=== PATIENT | female | born 1980 | race Caucasian/White ===

== ENCOUNTER → 2017-09-03 | Outpatient (CLI) | payer OTHER ==
[2017-09-03 08:57] LABS: Basophils # (A) 0.1 k/uL (0-0.2); Basophils % (A) 1 %; CH 31.6; Eosinophils # (A) 0.2 k/uL (0-0.7); Eosinophils % (A) 2 %; HCT 43.3 % (34.0-46.0); HDW 2.05; HGB 14.2 gm/dL (11.4-16.0); Luc # (Auto) 0.19; Luc % (Auto) 3; Lymphocytes # (A) 3.5 k/uL (1.0-4.8); Lymphocytes % (A) 45 %; MCH 31.3 pg (25.0-35.0); MCHC 32.7 g/dL (31.0-37.0); MCV 95.9 fL (80.0-100.0); Mean Platelet Volume 6.6; Monocytes # (A) 0.4 k/uL (0-1.0); Monocytes % (A) 6 %; Neutrophils # (A) 3.5 k/uL (1.3-7.7); Neutrophils % (A) 44 %; RBC 4.52 m/uL (3.80-5.40); WBC 7.9 k/uL (3.8-10.6); WBC (Perox) 7.63
[2017-09-03 09:27] LABS: ALT 35 U/L (9-52); AST 24 U/L (14-36); Alkaline Phosphatase 39 U/L (38-126); Anion Gap 8 mmol/L; Blood Urea Nitrogen 16 mg/dL (7-17); Calcium 10.4 mg/dL (8.4-10.2); Carbon Dioxide 28 mmol/L (22-30); Chloride 105 mmol/L (98-107); Cholesterol 217 mg/dL (<200); Glucose 85 mg/dL (74-99); HDL Cholesterol 83 mg/dL (40-60); Non-African American GFR(MDRD) >60 (>60 ml/min/1.73 sqM); Potassium 4.3 mmol/L (3.5-5.1); Sodium 141 mmol/L (137-145); Total Bilirubin 0.5 mg/dL (0.2-1.3); Total Protein 7.3 g/dL (6.3-8.2)
== END | disposition home or self-care (01) ==
LOC: LABWHC1 08:27
PROVIDERS: ATTEND Nurse Practitioner Family
DX: E55.9 Vitamin D deficiency, unspecified (principal); R79.9 Abnormal finding of blood chemistry, unspecified; D64.9 Anemia, unspecified; E78.5 Hyperlipidemia, unspecified
CPT/HCPCS: 36415; 80053; 80061; 82306; 82607; 83036; 84439; 84443; 85025

== ENCOUNTER → 2018-04-20 | Outpatient (CLI) | payer OTHER ==
[2018-04-20 10:12] LABS: Basophils # (A) 0.1 k/uL (0-0.2); Basophils % (A) 1 %; Eosinophils # (A) 0.2 k/uL (0-0.7); Eosinophils % (A) 2 %; HCT 40.8 % (34.0-46.0); Lymphocytes # (A) 3.3 k/uL (1.0-4.8); Lymphocytes % (A) 39 %; MCH 31.9 pg (25.0-35.0); MCHC 34.4 g/dL (31.0-37.0); MCV 92.9 fL (80.0-100.0); Monocytes # (A) 0.4 k/uL (0-1.0); Monocytes % (A) 5 %; Neutrophils # (A) 4.2 k/uL (1.3-7.7); Neutrophils % (A) 51 %; Platelet Count 465 k/uL (150-450); WBC 8.4 k/uL (3.8-10.6)
[2018-04-20 10:28] LABS: ALT 33 U/L (9-52); AST 27 U/L (14-36); Albumin 4.4 g/dL (3.5-5.0); Alkaline Phosphatase 40 U/L (38-126); Anion Gap 11 mmol/L; Blood Urea Nitrogen 13 mg/dL (7-17); Calcium 10.1 mg/dL (8.4-10.2); Carbon Dioxide 24 mmol/L (22-30); Chloride 105 mmol/L (98-107); Cholesterol 229 mg/dL (<200); Glucose 88 mg/dL (74-99); HDL Cholesterol 85 mg/dL (40-60); LDL Cholesterol,Calculated 112 mg/dL (0-99); Potassium 4.3 mmol/L (3.5-5.1); Sodium 140 mmol/L (137-145); Total Bilirubin 0.6 mg/dL (0.2-1.3); Total Protein 7.1 g/dL (6.3-8.2); Triglycerides 159 mg/dL (<150)
[2018-04-20 10:43] LABS: T4, Free (Free Thyroxine) 1.05 ng/dL (0.78-2.19)
[2018-04-20 16:53] LABS: Iron Saturation 55.7 (12.00-45.00)
[2018-04-20 17:00] LABS: Vitamin D 25 Hydroxy 57.6 ng/mL (30.0-100.0)
== END | disposition home or self-care (01) ==
LOC: LABWHC1 09:43
PROVIDERS: ATTEND Family Medicine
DX: Z00.00 Encounter for general adult medical examination without abnormal findings (principal); E55.9 Vitamin D deficiency, unspecified; F51.01 Primary insomnia; E78.5 Hyperlipidemia, unspecified; F41.9 Anxiety disorder, unspecified
CPT/HCPCS: 36415; 80053; 80061; 82306; 82607; 83540; 83550; 84439; 85025; 86304

== ENCOUNTER → 2018-05-07 | Outpatient (CLI) | payer OTHER ==
--- NOTE | 2018-05-08 08:42 | US ---
EXAMINATION TYPE: US transvaginal DATE OF EXAM: 05/07/2018 COMPARISON: NONE CLINICAL HISTORY: N83.209 Ovarian Cyst. Patient states she recently moved here from [place]. Her C A 125 levels were elevated, but are now in the normal range. History of right ovarian cyst. TECHNIQUE: . Transvaginal sonographic images of the pelvis were acquired. Date of LMP: About 3 months ago EXAM MEASUREMENTS: Uterus: 5.1 x 2.9 x 3.6 cm Endometrial Stripe: 0.5 cm Right Ovary: 2.9 x 1.9 x 1.0 cm Left Ovary: 1.4 x 1.2 x 0.7 cm 1. Uterus: Anteflexed wnl 2. Endometrium: wnl 3. Right Ovary: Solid appearing hypoechoic area visualized measuring 1.2 x 1.1 x 1.1 cm 4. Left Ovary: wnl 5. Bilateral Adnexa: wnl 6. Posterior cul-de-sac: wnl IMPRESSION: 1. Solid 1 cm nodule right ovary. Follow-up is recommended.
== END | disposition home or self-care (01) ==
LOC: RADUSWWP 16:01 → MERGE 16:20
PROVIDERS: ATTEND Family Medicine
DX: N83.8 Other noninflammatory disorders of ovary, fallopian tube and broad ligament (principal)
CPT/HCPCS: 76830

== ENCOUNTER → 2018-06-27 | Outpatient (CLI) | payer OTHER ==
--- NOTE | 2018-06-28 11:31 | MM ---
Reason for exam: screening (asymptomatic). History: Taking hormonal contraceptives for 5 years. Physical Findings: A clinical breast exam by your physician is recommended on an annual basis and results should be correlated with mammographic findings. MG 3D Screening Mammo W/Cad Bilateral CC and MLO view(s) were taken. No prior studies available for comparison. The breast tissue is heterogeneously dense. This may lower the sensitivity of mammography. There is no discrete abnormality. ASSESSMENT: Negative, BI-RAD 1 RECOMMENDATION: Routine screening mammogram of both breasts at age 39.
== END | disposition home or self-care (01) ==
LOC: RADMAMWWP 11:25
PROVIDERS: ATTEND Family Medicine
DX: Z12.31 Encounter for screening mammogram for malignant neoplasm of breast (principal)
CPT/HCPCS: 77063; 77067

== ENCOUNTER → 2018-07-10 | Outpatient (CLI) | payer OTHER ==
--- NOTE | 2018-07-11 12:16 | CT ---
EXAMINATION TYPE: CT abdomen w con DATE OF EXAM: 07/10/2018 COMPARISON: None INDICATION: Umbilical pain. DLP: 332.8 mGycm, Automated exposure control for dose reduction was used. CONTRAST: 100ml mL of Isovue 300. Study performed with Oral Contrast TECHNIQUE: Axial images were obtained from above the diaphragm to the pubic rami in the axial plane a t 5 mm thick sections. Reconstructed images are reviewed on the computer in the coronal plane. FINDINGS: Limited CT sections are obtained the lung bases. The lung bases are clear. CT ABDOMEN: There is a curvilinear 1.8 x 0.9 cm density superior to the umbilicus.. This appears to b e associated with a slightly more superior periumbilical hernia with an opening estimated 0.9 cm. Néstor e fluid within the brain may be present. No loops of bowel are involved. Liver: There is an irregular hypodensity within the posterior right upper lobe liver measuring 1.2 cm . This has less visualization on the delayed images could be a hemangioma. Monitoring is recommended. Remaining portions of the liver appear unremarkable. Spleen: Normal Pancreas: Normal Adrenal glands: The adrenal glands are normal. Gallbladder: Normal Kidneys: No masses are evident. No hydronephrosis is present. There is a 1.7 cm renal cyst measurin g 19 Hounsfield unit anterior left mid kidney. A small inferior anterior cortical renal cyst measurin g 1.2 cm and 23 Hounsfield units is present. Tiny cortical renal cyst is likely along the mid to infe rior medial right kidney measuring 0.6 cm. Delayed images were obtained through the kidneys, which r emain unremarkable. Renal cysts are better visualized on delayed images. Aorta: Normal Inferior vena cava: Normal. Bowel loops: Bowel loops distended with oral contrast appear normal. There are loops of bowel lacking oral contrast limiting their evaluation. Osseous structures: Osseous structures appear normal. No suspicious lytic or sclerotic lesions are ev ident. IMPRESSIONS: 1. Periumbilical hernia may has some loculated fluid. No bowel loops are involved.
== END | disposition home or self-care (01) ==
LOC: RADCTMAIN 18:01
PROVIDERS: ATTEND Family Medicine
DX: K42.9 Umbilical hernia without obstruction or gangrene (principal)
CPT/HCPCS: 74160; Q9967

== ENCOUNTER → 2018-07-24 | Outpatient (CLI) | payer OTHER ==
--- NOTE | 2018-07-25 09:03 | US ---
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 Follow up lesion on right ovary, 1, para 1 TECHNIQUE: Transvaginal exam only per ordering physician. Date of LMP: 2-3 weeks ago EXAM MEASUREMENTS: Uterus: 5.9 x 3.5 x 4.0 cm Endometrial Stripe: 0.6 cm ?? Right Ovary: 3.5 x 2.0 x 3.3 cm Left Ovary: not seen 1. Uterus: anteverted 2. Endometrium: wnl 3. Right Ovary: 2.7 x 1.7 x 2.6cm cyst, 1.4 x 1.2 x 1.2cm exophytic solid appearing lesion 4. Left Ovary: not seen due to overlying peristalsing bowel 5. Bilateral Adnexa: wnl 6. Posterior cul-de-sac: small amount of free fluid Markedly heterogeneous uterus with poor visualization of endometrial stripe on images saved. Tiny justin unt of free fluid in pelvic cul-de-sac is nonspecific marked on last images saved. On current exam there is new 2.7 cm simple appearing cyst in the right ovary versus prominent follicl e. Previously visualized peripheral 1.2 cm hypoechoic lesion is redemonstrated. IMPRESSION: Redemonstration of 1.2 cm round hypoechoic lesion makes hemorrhagic cyst unlikely, cannot exclude solid mass or neoplasm. Consider gynecology oncology referral to further assess.
== END | disposition home or self-care (01) ==
LOC: RADUSWWP 16:54
PROVIDERS: ATTEND Family Medicine
DX: N83.201 Unspecified ovarian cyst, right side (principal)
CPT/HCPCS: 76830

== ENCOUNTER → 2018-08-01 | Outpatient (CLI) | payer OTHER ==
[2018-08-01 13:07] LABS: Basophils # (A) 0.1 k/uL (0-0.2); Basophils % (A) 1 %; Eosinophils # (A) 0.2 k/uL (0-0.7); Eosinophils % (A) 2 %; HCT 37.4 % (34.0-46.0); HGB 12.4 gm/dL (11.4-16.0); Lymphocytes % (A) 34 %; MCH 31.7 pg (25.0-35.0); MCV 95.9 fL (80.0-100.0); Monocytes # (A) 0.4 k/uL (0-1.0); Monocytes % (A) 5 %; Neutrophils % (A) 56 %; Platelet Count 466 k/uL (150-450); RDW 12.7 % (11.5-15.5)
[2018-08-01 13:31] LABS: ALT 38 U/L (9-52); AST 25 U/L (14-36); Albumin 4.2 g/dL (3.5-5.0); Alkaline Phosphatase 32 U/L (38-126); Anion Gap 9 mmol/L; Blood Urea Nitrogen 21 mg/dL (7-17); Calcium 10.1 mg/dL (8.4-10.2); Carbon Dioxide 25 mmol/L (22-30); Chloride 105 mmol/L (98-107); Glucose 97 mg/dL (74-99); Potassium 4.3 mmol/L (3.5-5.1); Sodium 139 mmol/L (137-145); Total Bilirubin 0.2 mg/dL (0.2-1.3)
[2018-08-01 13:43] LABS: T4, Free (Free Thyroxine) 1.07 ng/dL (0.78-2.19)
[2018-08-01 18:53] LABS: Iron Saturation 15.58 (12.00-45.00)
== END | disposition home or self-care (01) ==
LOC: LABWHC1 12:18
PROVIDERS: ATTEND Family Medicine
DX: E83.110 Hereditary hemochromatosis (principal)
CPT/HCPCS: 36415; 80053; 82728; 83540; 83550; 84439; 84443; 85025

== ENCOUNTER → 2019-06-06 | Outpatient (CLI) | payer BC ==
[2019-06-06 09:47] LABS: Basophils % (A) 1 %; Eosinophils # (A) 0.2 k/uL (0-0.7); Eosinophils % (A) 2 %; HCT 39.7 % (34.0-46.0); HGB 13.3 gm/dL (11.4-16.0); Lymphocytes # (A) 3.3 k/uL (1.0-4.8); Lymphocytes % (A) 39 %; MCH 31.3 pg (25.0-35.0); MCHC 33.7 g/dL (31.0-37.0); MCV 93.1 fL (80.0-100.0); Mean Platelet Volume 6.4; Monocytes # (A) 0.4 k/uL (0-1.0); Monocytes % (A) 4 %; Neutrophils # (A) 4.4 k/uL (1.3-7.7); Neutrophils % (A) 52 %; Platelet Count 486 k/uL (150-450); RBC 4.26 m/uL (3.80-5.40); RDW 13.2 % (11.5-15.5); WBC 8.6 k/uL (3.8-10.6)
[2019-06-06 17:10] LABS: Iron Saturation 51.36 (12.00-45.00)
[2019-06-06 17:26] LABS: T4, Free (Free Thyroxine) 1.1 ng/dL (0.80-1.80)
[2019-06-06 18:20] LABS: African American GFR (CKD) 93.4 (60.0-200.0); Albumin 4.1 g/dL (3.80-4.90); Albumin/Globulin Ratio 2.28 (1.60-3.17); Anion Gap 6.5 mmol/L (4.00-12.00); BUN/Creat Ratio 16.67 Ratio (12.00-20.00); Calcium 9.6 mg/dL (8.7-10.3); Carbon Dioxide 25.5 mmol/L (21.6-31.8); Chol/HDL Ratio 2.57; Globulin 1.8 g/dL (1.6-3.3); LDL Cholesterol,Calculated 97.8 mg/dL (0.0-131.0); Non-African American GFR(CKD) 80.5 (60.0-200.0); Potassium 4.2 mmol/L (3.5-5.5); Total Bilirubin 0.5 mg/dL (0.2-1.2); Total Protein 5.9 g/dL (6.2-8.2); VLDL Calculation 23.2 mg/dL (5.00-40.00)
[2019-06-07 11:29] LABS: HLA B27 POSITIVE
== END | disposition home or self-care (01) ==
LOC: LABWHC1 08:54
PROVIDERS: ATTEND Family Medicine
DX: E78.5 Hyperlipidemia, unspecified (principal); G47.00 Insomnia, unspecified; F41.9 Anxiety disorder, unspecified; N83.209 Unspecified ovarian cyst, unspecified side
CPT/HCPCS: 36415; 80053; 80061; 82607; 82728; 83540; 83550; 84439; 84443; 85025; 86304; 86812

== ENCOUNTER → 2019-06-19 | Outpatient (CLI) | payer BC ==
--- NOTE | 2019-06-19 13:51 | US ---
EXAMINATION TYPE: US transvaginal DATE OF EXAM: 06/19/2019 COMPARISON: US 07/24/18 CLINICAL HISTORY: N83.209 Ovarian Cyst. Spotting between periods. History of right ovarian cyst. TECHNIQUE: Transvaginal (TV). Transabdominal sonographic images of the pelvis were acquired. Trans vaginal sonographic images were medically necessary to better assess the following anatomy: Date of LMP: 06/12/19 EXAM MEASUREMENTS: Uterus: 6.8 x 3.6 x 3.3 cm Endometrial Stripe: 0.6 cm Right Ovary: 1.6 x 1.4 x 1.3 cm Left Ovary: 1.3 x 1.1 x 1.0 cm 1. Uterus: Anteverted heterogeneous texture 2. Endometrium: wnl 3. Right Ovary: 0.6 x 0.5 x 0.3 cm follicle noted 4. Left Ovary: 0.6 cm follicle noted 5. Bilateral Adnexa: wnl 6. Posterior cul-de-sac: wnl large amounts of peristalsing bowel. IMPRESSION: 1. Resolution of the previously seen right-sided paraovarian cyst with bilateral follicles noted, lik lyla functional physiologic follicles. 2. Uterus is heterogenous in echotexture, which can be seen with small noncircumscribed leiomyomas or adenomyosis.
== END | disposition home or self-care (01) ==
LOC: RADUSWWP 13:02
PROVIDERS: ATTEND Family Medicine
DX: N83.209 Unspecified ovarian cyst, unspecified side (principal)
CPT/HCPCS: 76830

== ENCOUNTER → 2020-11-16 | Outpatient (CLI) | payer BC ==
[2020-11-16 19:38] LABS: Basophils # (A) 0.07 X 10*3/uL (0.00-0.10); Basophils % (A) 0.8 %; Eosinophils # (A) 0.15 X 10*3/uL (0.04-0.35); Eosinophils % (A) 1.8 %; HCT 38.4 % (37.2-46.3); HGB 13.3 g/dL (12.0-15.0); Lymphocytes # (A) 3.07 X 10*3/uL (0.90-5.00); Lymphocytes % (A) 36.5 %; MCH 33.1 pg (27.0-32.0); MCHC 34.6 g/dL (32.0-37.0); MCV 95.5 fL (80.0-97.0); Monocytes # (A) 0.78 X 10*3/uL (0.20-1.00); Monocytes % (A) 9.3 %; Neutrophils # (A) 4.32 X 10*3/uL (1.80-7.70); Neutrophils % (A) 51.4 %; Platelet Count 442 X 10*3/uL (140-440); RBC 4.02 X 10*6/uL (4.10-5.20); RDW 12.9 % (11.5-14.5); WBC 8.41 X 10*3/uL (4.50-10.00)
[2020-11-17 00:21] LABS: T4, Free (Free Thyroxine) 1.2 ng/dL (0.80-1.80)
[2020-11-17 00:24] LABS: African American GFR (CKD) 106.1 (60.0-200.0); Albumin 4.8 g/dL (3.80-4.90); Albumin/Globulin Ratio 2.18 (1.60-3.17); Anion Gap 15.2 mmol/L (4.00-12.00); BUN/Creat Ratio 16.25 Ratio (12.00-20.00); Carbon Dioxide 21.8 mmol/L (21.6-31.8); Chol/HDL Ratio 2.23; Globulin 2.2 g/dL (1.6-3.3); LDL Cholesterol,Calculated 95.2 mg/dL (0.0-131.0); Non-African American GFR(CKD) 91.6 (60.0-200.0); Potassium 3.6 mmol/L (3.5-5.5); Total Bilirubin 0.5 mg/dL (0.3-1.2); VLDL Calculation 31.8 mg/dL (5.00-40.00)
== END | disposition home or self-care (01) ==
LOC: LABWHC1 10:30
PROVIDERS: ATTEND Family Medicine
DX: Z01.419 Encounter for gynecological examination (general) (routine) without abnormal findings (principal); E78.5 Hyperlipidemia, unspecified; G47.00 Insomnia, unspecified; E55.9 Vitamin D deficiency, unspecified
CPT/HCPCS: 36415; 80053; 80061; 82306; 82607; 84439; 84443; 85025

== ENCOUNTER → 2020-12-08 | Outpatient (CLI) | payer BC | END | disposition home or self-care (01) | LOC: LABWHC1 15:40 | PROVIDERS: ATTEND Family Medicine | DX: N83.209 Unspecified ovarian cyst, unspecified side (principal) | CPT/HCPCS: 36415; 86304 ==

== ENCOUNTER → 2021-01-25 | Outpatient (CLI) | payer BC ==
--- NOTE | 2021-01-27 13:37 | MM ---
Reason for exam: screening (asymptomatic). Last mammogram was performed 2 years and 7 months ago. History: Taking hormonal contraceptives for 8 years. Physical Findings: A clinical breast exam by your physician is recommended on an annual basis and results should be correlated with mammographic findings. MG 3D Screening Mammo W/Cad Bilateral CC and MLO view(s) were taken. Prior study comparison: June 27, 2018, bilateral MG 3d screening mammo w/cad. The breast tissue is heterogeneously dense. This may lower the sensitivity of mammography. No significant changes when compared with prior studies. ASSESSMENT: Benign, BI-RAD 2 RECOMMENDATION: Routine screening mammogram of both breasts in 1 year.
== END | disposition home or self-care (01) ==
LOC: RADMAMWWP 15:48
PROVIDERS: ATTEND Family Medicine
DX: Z12.31 Encounter for screening mammogram for malignant neoplasm of breast (principal)
CPT/HCPCS: 77063; 77067

== ENCOUNTER 2021-02-17 12:41 | Observation (INO) | payer BC ==
[2021-02-17] MEDS ORDERED: KETOROLAC 15 MG/ML 1 ML VIAL IVP STA (13:28)
[2021-02-17] MEDS ORDERED: ALPRAZolam 0.25 MG TAB PO STA (13:28)
[2021-02-17] MEDS ORDERED: SODIUM CHLORIDE 0.9% 1,000 ML IV STA ×3 (13:28→15:39)
[2021-02-17 13:46] LABS: Basophils % (A) 0 %; Eosinophils # (A) 0.1 k/uL (0-0.7); Eosinophils % (A) 1 %; HCT 40.7 % (34.0-46.0); HGB 14.3 gm/dL (11.4-16.0); Lymphocytes # (A) 2.6 k/uL (1.0-4.8); Lymphocytes % (A) 19 %; MCH 32.6 pg (25.0-35.0); MCHC 35.1 g/dL (31.0-37.0); MCV 93.1 fL (80.0-100.0); Mean Platelet Volume 6.5; Monocytes # (A) 0.5 k/uL (0-1.0); Monocytes % (A) 4 %; Neutrophils # (A) 9.8 k/uL (1.3-7.7); Neutrophils % (A) 75 %; Platelet Count 448 k/uL (150-450); RBC 4.37 m/uL (3.80-5.40); RDW 12.4 % (11.5-15.5); WBC 13.1 k/uL (3.8-10.6)
[2021-02-17 13:55] LABS: ALT 27 U/L (4-34); AST 43 U/L (14-36); African American GFR (CKD) >90 (>60 ml/min/1.73 sqM); Albumin 4.5 g/dL (3.5-5.0); Alkaline Phosphatase 47 U/L (38-126); Anion Gap 11 mmol/L; Blood Urea Nitrogen 15 mg/dL (7-17); Calcium 9.8 mg/dL (8.4-10.2); Carbon Dioxide 23 mmol/L (22-30); Chloride 100 mmol/L (98-107); Glucose 129 mg/dL (74-99); Non-African American GFR(CKD) >90 (>60 ml/min/1.73 sqM); Potassium 3.8 mmol/L (3.5-5.1); Sodium 134 mmol/L (137-145); Total Bilirubin 0.8 mg/dL (0.2-1.3); Total Protein 7.3 g/dL (6.3-8.2)
[2021-02-17 13:57] LABS: Amorphous Sediment,Urine Rare /hpf; Appearance,Urine Cloudy (Clear); Bacteria,Urine Rare /hpf; Bilirubin,Urine Negative (Negative); Blood,Urine Large (Negative); Budding Yeast,Urine Rare /hpf; Color,Urine Light Red; Glucose,Urine (UA) Negative (Negative); Ketones,Urine Trace (Negative); Leukocyte Esterase,Urine Large (Negative); Mucus,Urine Many /hpf; Nitrite,Urine Negative (Negative); PH, Urine 6.5 (5.0-8.0); Protein,Urine 3+ (Negative); RBC,Urine >182 /hpf (0-5); Specific Gravity,Urine 1.031 (1.001-1.035); Squamous Epithelial Cell,Urine 6 /hpf (0-4); Urobilinogen,Urine <2.0 mg/dL (<2.0); WBC,Urine 46 /hpf (0-5)
[2021-02-17] MEDS ORDERED: ACETAMINOPHEN TAB 500 MG TAB PO STA (14:14)
--- NOTE | 2021-02-17 14:30 | CT ---
EXAMINATION TYPE: CT abdomen pelvis wo con DATE OF EXAM: 02/17/2021 HISTORY: Right flank pain, gross hematuria. CT DLP: 440.6 mGycm. Automated Exposure Control for Dose Reduction was Utilized. TECHNIQUE: CT scan of the abdomen and pelvis is performed without oral or IV contrast. COMPARISON: CT abdomen July 10, 2018 FINDINGS: Within the limitations of a non-contrast study, the following observations are made. LUNG BASES: No significant abnormality is appreciated. LIVER/GB: Gallbladder has distended margins with increased density could reflect sludge. No surroundi ng inflammatory change PANCREAS: No significant abnormality is seen. SPLEEN: No significant abnormality is seen. ADRENALS: No significant abnormality is seen. KIDNEYS: No renal stones or hydronephrosis seen bilaterally. No intraluminal calculus in the poorly d istended bladder BOWEL: Normal-appearing appendix ascending from cecum right pelvis. No suspicious small or large aneta l dilatation. Low lying cecum into the right pelvis. GENITAL ORGANS: Slightly retroflexed uterus. Scattered bilateral pelvic phleboliths. LYMPH NODES: No greater than 1cm abdominal or pelvic lymph nodes are appreciated. OSSEOUS STRUCTURES: Moderate disc space narrowing L4-L5 level. OTHER: No significant additional abnormality is seen. IMPRESSION: No renal stones or hydronephrosis is seen bilaterally. No acute findings are evident.
[2021-02-17] MEDS ORDERED: SODIUM CHLORIDE 0.9% 500 ML 500 ML IV STA (15:22)
[2021-02-17] MEDS ORDERED: ONDANSETRON 4 MG/2 ML VIAL IVP PRN (15:28)
[2021-02-17] MEDS ORDERED: ACETAMINOPHEN TAB 325 MG TAB PO PRN (15:28)
[2021-02-17] MEDS ORDERED: NALOXONE 0.4 MG/ML 1 ML VIAL IV PRN (15:28)
[2021-02-17] MEDS ORDERED: VANCOMYCIN IV PER PHARMACY 1 EACH MISC MISCELLANE PRN (15:32)
--- NOTE | 2021-02-17 15:39 | ED ---
Female Urogenital HPI <Simone Larkin - Last Filed: 02/17/21 15:45> - General Source: patient Mode of arrival: ambulatory Limitations: no limitations <Carmen Catalan - Last Filed: 02/17/21 17:59> - General Chief complaint: Urogenital Stated complaint: Back Pain Time Seen by Provider: 02/17/21 13:06 - History of Present Illness Initial comments: Patient is a 40-year-old female presenting to the emergency Department with complaints of right flank pain with increasing over the past 2 days. She also has some mild suprapubic discomfort. For the past 2 days she also noticed some hematuria. She denies history of kidney stones in the past. She states she has had a UTI in the past with no dysuria symptoms. She denies any fevers or chills, her appetite has been low, no nausea or vomiting. She denies history of any abdominal surgeries. She denies being . She has no further complaints at this time. Upon arrival to the ER, patient is very anxious, heart rate is 124, afebrile, blood pressure is 167/82. She does have a history of anxiety (Carmen Catalan) - Related Data Home Medications Medication Instructions Recorded Confirmed ALPRAZolam [Xanax] 0.5 mg PO DAILY PRN 02/17/21 02/17/21 Cyclobenzaprine [Flexeril] 10 mg PO HS 02/17/21 02/17/21 Eszopiclone [Lunesta] 1.5 mg PO HS 02/17/21 02/17/21 Etonogestrel/Ethinyl Estradiol 1 ring VAGINAL DIRECTED 02/17/21 02/17/21 [Nuvaring Vaginal Ring] Ketorolac [Toradol] 10 mg PO Q6H PRN 02/17/21 02/17/21 Allergies Allergy/AdvReac Type Severity Reaction Status Date / Time azithromycin AdvReac Nausea & Verified 02/17/21 16:02 [From Zithromax Z-Vernon] Vomiting Review of Systems ROS Other: All systems not noted in ROS Statement are negative. <Simone Larkin - Last Filed: 02/17/21 15:45> ROS Other: All systems not noted in ROS Statement are negative. <Carmen Catalan - Last Filed: 02/17/21 17:59> ROS Statement: Those systems with pertinent positive or pertinent negative responses have been documented in the HPI. Past Medical History Past Medical History: No Reported History History of Any Multi-Drug Resistant Organisms: None Reported Past Surgical History: Tonsillectomy Past Psychological History: Anxiety Smoking Status: Current some day smoker Past Alcohol Use History: Occasional Past Drug Use History: None Reported <Carmen Catalan - Last Filed: 02/17/21 17:59> General Exam Limitations: no limitations <Carmen Catalan - Last Filed: 02/17/21 17:59> - General Exam Comments Initial Comments: GENERAL: Patient is well-developed and well-nourished. Patient is nontoxic and in mild distress, very anxious. HEAD: Atraumatic, normocephalic. EYES: Pupils equal round and reactive to light, extraocular movements intact, sclera anicteric, conjunctiva are normal. Eyelids were unremarkable. ENT: TMs normal, nares patent, oropharynx clear without exudates. Moist mucous membranes. NECK: Normal range of motion, supple without lymphadenopathy or JVD. LUNGS: Unlabored respirations. Breath sounds clear to auscultation bilaterally and equal. No wheezes rales or rhonchi. HEART: Regular rate and rhythm without murmurs, rubs or gallops. ABDOMEN: Soft, mild discomfort in the suprapubic area, right flank pain, normoactive bowel sounds. No guarding, no rebound. No masses appreciated. : Deferred MUSCULOSKELETAL: Normal extremities with adequate strength and normal range of motion, no pitting or edema. No clubbing or cyanosis. NEUROLOGICAL: Patient is alert and oriented x 3. Motor and sensory are also intact. Cranial nerves II through XII grossly intact. Symmetrical smile. Normal speech, normal gait. PSYCH: Anxious SKIN: Warm, Dry, normal turgor, no rashes or lesions noted. (Carmen Catalan) Course Vital Signs 02/17/21 02/17/21 02/17/21 12:53 14:16 15:00 Temperature 97.9 F 100.4 F H 98.9 F Pulse Rate 124 H 95 Respiratory 18 18 Rate Blood Pressure 167/82 134/78 O2 Sat by Pulse 97 100 Oximetry 02/17/21 17:51 Temperature 98.4 F Pulse Rate 95 Respiratory 18 Rate Blood Pressure 140/82 O2 Sat by Pulse 100 Oximetry Procedures - Sepsis Sepsis Focused Exam #1 Time Sepsis Criteria Met: 15:00 Sepsis Focused Exam Date: 02/17/21 Sepsis Focused Exam Time: 17:00 Sepsis Focused Exam Complete: Yes Vital Signs & RN Notes Reviewed: Yes Capillary Refill: < 2 Seconds: Fingers, Toes Peripheral Pulses: Normal: Radial (R), Radial (L), Dorsalis Pedis (R), Dorsalis Pedis (L) Skin Color: Normal for Patient Respiratory Exam: normal lung sounds Cardiovascular Exam: regular rate, normal rhythm <Carmen Catalan - Last Filed: 02/17/21 17:59> Medical Decision Making - Lab Data Result diagrams: 02/17/21 13:37 02/17/21 13:37 <Simone Larkin - Last Filed: 02/17/21 15:45> - Lab Data Result diagrams: 02/17/21 13:37 02/17/21 13:37 <Carmen Catalan - Last Filed: 02/17/21 17:59> - Medical Decision Making Patient reevaluated and reexamined by myself, Dr. Larkin. Patient with right CVA discomfort. Patient also complains of hematuria. Patient did have somewhat similar symptoms years ago associated with pyelonephritis. Computed tomography scan unremarkable. Patient does have mild elevation of white blood cell count and elevated lactic acid. Urinalysis with hematuria and some white cells. Patient will be admitted with Dr. Lema with IV antibiotics. Fluid bolus will be provided and lactic acid will be rechecked. (Simone Larkin) Patient is a 40-year-old female presenting with right flank pain increasing over the past 2 days, suprapubic discomfort. She arrives very anxious, heart rate was 124, blood pressure was elevated. Upon recheck of vitals about an hour later, she developed a fever 100.4. Labs show a white count of 13.1, lactic acid is elevated at 4.3, urine shows large amount of bacteria, WBCs. I did do a CT of the abdomen and pelvis which shows no renal stones or hydronephrosis. Patient was given a liter of fluids, Toradol and Tylenol prior to resolve the lactic acid. We did order another liter and half of fluids, and will recheck the lactic acid, recheck was 1.3. Patient will be admitted for sepsis, lactic acidosis, pyelonephritis. Patient accepted by Dr. Lema. I also ordered an ultrasound of the kidneys and bladder, this is pending. We will start Mayra and Mariya. Case discussed with Dr. Larkin. (Carmen Catalan) - Lab Data Lab Results 02/17/21 02/17/21 02/17/21 Range/Units 13:37 13:37 13:37 WBC 13.1 H (3.8-10.6) k/uL RBC 4.37 (3.80-5.40) m/uL Hgb 14.3 (11.4-16.0) gm/dL Hct 40.7 (34.0-46.0) % MCV 93.1 (80.0-100.0) fL MCH 32.6 (25.0-35.0) pg MCHC 35.1 (31.0-37.0) g/dL RDW 12.4 (11.5-15.5) % Plt Count 448 (150-450) k/uL MPV 6.5 Neutrophils % 75 % Lymphocytes % 19 % Monocytes % 4 % Eosinophils % 1 % Basophils % 0 % Neutrophils # 9.8 H (1.3-7.7) k/uL Lymphocytes # 2.6 (1.0-4.8) k/uL Monocytes # 0.5 (0-1.0) k/uL Eosinophils # 0.1 (0-0.7) k/uL Basophils # 0.0 (0-0.2) k/uL Sodium 134 L (137-145) mmol/L Potassium 3.8 (3.5-5.1) mmol/L Chloride 100 (98-107) mmol/L Carbon Dioxide 23 (22-30) mmol/L Anion Gap 11 mmol/L BUN 15 (7-17) mg/dL Creatinine 0.67 (0.52-1.04) mg/dL Est GFR (CKD-EPI)AfAm >90 (>60 ml/min/1.73 sqM) Est GFR (CKD-EPI)NonAf >90 (>60 ml/min/1.73 sqM) Glucose 129 H (74-99) mg/dL Lactic Ac Sepsis Rflx Plasma Lactic Acid Eliud (0.7-2.0) mmol/L Calcium 9.8 (8.4-10.2) mg/dL Total Bilirubin 0.8 (0.2-1.3) mg/dL AST 43 H (14-36) U/L ALT 27 (4-34) U/L Alkaline Phosphatase 47 (38-126) U/L Total Protein 7.3 (6.3-8.2) g/dL Albumin 4.5 (3.5-5.0) g/dL Urine Color Urine Appearance (Clear) Urine pH (5.0-8.0) Ur Specific [place] (1.001-1.035) Urine Protein (Negative) Urine Glucose (UA) (Negative) Urine Ketones (Negative) Urine Blood (Negative) Urine Nitrite (Negative) Urine Bilirubin (Negative) Urine Urobilinogen (<2.0) mg/dL Ur Leukocyte Esterase (Negative) Urine RBC (0-5) /hpf Urine WBC (0-5) /hpf Ur Squamous Epith Cells (0-4) /hpf Amorphous Sediment (None) /hpf Urine Bacteria (None) /hpf Urine Mucus (None) /hpf Urine Yeast (Budding) (None) /hpf Urine HCG, Qual Not Detected (Not Detectd) 02/17/21 02/17/21 02/17/21 Range/Units 13:37 13:37 14:59 WBC (3.8-10.6) k/uL RBC (3.80-5.40) m/uL Hgb (11.4-16.0) gm/dL Hct (34.0-46.0) % MCV (80.0-100.0) fL MCH (25.0-35.0) pg MCHC (31.0-37.0) g/dL RDW (11.5-15.5) % Plt Count (150-450) k/uL MPV Neutrophils % % Lymphocytes % % Monocytes % % Eosinophils % % Basophils % % Neutrophils # (1.3-7.7) k/uL Lymphocytes # (1.0-4.8) k/uL Monocytes # (0-1.0) k/uL Eosinophils # (0-0.7) k/uL Basophils # (0-0.2) k/uL Sodium (137-145) mmol/L Potassium (3.5-5.1) mmol/L Chloride (98-107) mmol/L Carbon Dioxide (22-30) mmol/L Anion Gap mmol/L BUN (7-17) mg/dL Creatinine (0.52-1.04) mg/dL Est GFR (CKD-EPI)AfAm (>60 ml/min/1.73 sqM) Est GFR (CKD-EPI)NonAf (>60 ml/min/1.73 sqM) Glucose (74-99) mg/dL Lactic Ac Sepsis Rflx Y Plasma Lactic Acid Eliud 4.3 H* (0.7-2.0) mmol/L Calcium (8.4-10.2) mg/dL Total Bilirubin (0.2-1.3) mg/dL AST (14-36) U/L ALT (4-34) U/L Alkaline Phosphatase (38-126) U/L Total Protein (6.3-8.2) g/dL Albumin (3.5-5.0) g/dL Urine Color Light Red Urine Appearance Cloudy H (Clear) Urine pH 6.5 (5.0-8.0) Ur Specific [place] 1.031 (1.001-1.035) Urine Protein 3+ H (Negative) Urine Glucose (UA) Negative (Negative) Urine Ketones Trace H (Negative) Urine Blood Large H (Negative) Urine Nitrite Negative (Negative) Urine Bilirubin Negative (Negative) Urine Urobilinogen <2.0 (<2.0) mg/dL Ur Leukocyte Esterase Large H (Negative) Urine RBC >182 H (0-5) /hpf Urine WBC 46 H (0-5) /hpf Ur Squamous Epith Cells 6 H (0-4) /hpf Amorphous Sediment Rare H (None) /hpf Urine Bacteria Rare H (None) /hpf Urine Mucus Many H (None) /hpf Urine Yeast (Budding) Rare H (None) /hpf Urine HCG, Qual (Not Detectd) 02/17/21 Range/Units 16:45 WBC (3.8-10.6) k/uL RBC (3.80-5.40) m/uL Hgb (11.4-16.0) gm/dL Hct (34.0-46.0) % MCV (80.0-100.0) fL MCH (25.0-35.0) pg MCHC (31.0-37.0) g/dL RDW (11.5-15.5) % Plt Count (150-450) k/uL MPV Neutrophils % % Lymphocytes % % Monocytes % % Eosinophils % % Basophils % % Neutrophils # (1.3-7.7) k/uL Lymphocytes # (1.0-4.8) k/uL Monocytes # (0-1.0) k/uL Eosinophils # (0-0.7) k/uL Basophils # (0-0.2) k/uL Sodium (137-145) mmol/L Potassium (3.5-5.1) mmol/L Chloride (98-107) mmol/L Carbon Dioxide (22-30) mmol/L Anion Gap mmol/L BUN (7-17) mg/dL Creatinine (0.52-1.04) mg/dL Est GFR (CKD-EPI)AfAm (>60 ml/min/1.73 sqM) Est GFR (CKD-EPI)NonAf (>60 ml/min/1.73 sqM) Glucose (74-99) mg/dL Lactic Ac Sepsis Rflx Plasma Lactic Acid Eliud 1.3 (0.7-2.0) mmol/L Calcium (8.4-10.2) mg/dL Total Bilirubin (0.2-1.3) mg/dL AST (14-36) U/L ALT (4-34) U/L Alkaline Phosphatase (38-126) U/L Total Protein (6.3-8.2) g/dL Albumin (3.5-5.0) g/dL Urine Color Urine Appearance (Clear) Urine pH (5.0-8.0) Ur Specific [place] (1.001-1.035) Urine Protein (Negative) Urine Glucose (UA) (Negative) Urine Ketones (Negative) Urine Blood (Negative) Urine Nitrite (Negative) Urine Bilirubin (Negative) Urine Urobilinogen (<2.0) mg/dL Ur Leukocyte Esterase (Negative) Urine RBC (0-5) /hpf Urine WBC (0-5) /hpf Ur Squamous Epith Cells (0-4) /hpf Amorphous Sediment (None) /hpf Urine Bacteria (None) /hpf Urine Mucus (None) /hpf Urine Yeast (Budding) (None) /hpf Urine HCG, Qual (Not Detectd) Critical Care Time Critical Care Time: Yes Total Critical Care Time: 35 (Sepsis, pyelonephritis, lactic acidosis. Patient admitted, started on antibiotics.) <Carmen Catalan - Last Filed: 02/17/21 17:59> Disposition <Simone Larkin - Last Filed: 02/17/21 15:45> Is patient prescribed a controlled substance at d/c from ED?: No Decision Date: 02/17/21 Decision Time: 15:28 <Carmen Catalan - Last Filed: 02/17/21 17:59> Clinical Impression: Sepsis, Lactic acidosis, Pyelonephritis Disposition: ADMITTED IP TO THIS HOSP Condition: Stable Referrals: Clara Lema MD [Primary Care Provider] - 1-2 days
[2021-02-17] MEDS ORDERED: VANCOMYCIN 1,250 MG in SODIUM CHLORIDE 0.9% 250 ML IVPB ONE (16:00)
[2021-02-17] MEDS: KETOROLAC 15 MG/ML 1 ML VIAL IVP PRN ×2 (16:46→22:38)
[2021-02-17] MEDS: SODIUM CHLORIDE 0.9% 1,000 ML IV SCH (17:54)
--- NOTE | 2021-02-17 17:54 | US ---
EXAMINATION TYPE: US kidneys/renal and bladder DATE OF EXAM: 02/17/2021 COMPARISON: Same day CT CLINICAL HISTORY: pylo, r/o stones. Pt states right flank pain EXAM MEASUREMENTS: Right Kidney: 9.8 x 5.2 x 5.1 cm Left Kidney: 11.9 x 5.8 x 4.9 cm Right Kidney: No evidence of hydro, echogenic focus visualized mid ?calculus= 0.6 cm Left Kidney: Visualized portions appeared wnl, difficult to visualize due to overlying bowel gas Bladder: wnl Bilateral Jets seen: No IMPRESSION: There is echogenic focus in the right kidney that could be nonobstructing calculus. No evidence of obstruction. Normal urinary bladder.
[2021-02-17 21:21] VITALS: RESP 16
[2021-02-17] MEDS ORDERED: HYDROcodone/APAP 5-325MG 1 EACH TAB PO PRN (21:34)
[2021-02-17] MEDS ORDERED: ACETAMINOPHEN TAB 500 MG TAB PO PRN (21:36)
[2021-02-17] MEDS ORDERED: ALPRAZolam 0.5 MG TAB PO PRN (21:37)
[2021-02-17] MEDS ORDERED: CYCLOBENZAPRINE 10 MG TAB PO SCH (21:45)
[2021-02-17] MEDS ORDERED: TEMAZEPAM 15 MG CAP PO SCH (21:45)
[2021-02-18 05:54] LABS: Basophils % (A) 0 %; Eosinophils # (A) 0.2 k/uL (0-0.7); Eosinophils % (A) 2 %; HCT 34.9 % (34.0-46.0); HGB 12.3 gm/dL (11.4-16.0); Lymphocytes # (A) 3.4 k/uL (1.0-4.8); Lymphocytes % (A) 42 %; MCH 33.6 pg (25.0-35.0); MCHC 35.3 g/dL (31.0-37.0); MCV 95.3 fL (80.0-100.0); Mean Platelet Volume 6.9; Monocytes # (A) 0.3 k/uL (0-1.0); Monocytes % (A) 4 %; Neutrophils % (A) 50 %; Platelet Count 315 k/uL (150-450); RBC 3.67 m/uL (3.80-5.40); RDW 12.4 % (11.5-15.5); WBC 8.1 k/uL (3.8-10.6)
[2021-02-18] MEDS ORDERED: VANCOMYCIN 1,250 MG in SODIUM CHLORIDE 0.9% 250 ML IVPB SCH ×2 (06:00→14:00)
[2021-02-18] MEDS: SODIUM CHLORIDE 0.9% 1,000 ML IV SCH (06:07)
[2021-02-18] MEDS: KETOROLAC 15 MG/ML 1 ML VIAL IVP PRN (06:08)
[2021-02-18 06:17] LABS: African American GFR (CKD) >90 (>60 ml/min/1.73 sqM); Anion Gap 3 mmol/L; Blood Urea Nitrogen 7 mg/dL (7-17); Carbon Dioxide 26 mmol/L (22-30); Chloride 106 mmol/L (98-107); Glucose 89 mg/dL (74-99); Non-African American GFR(CKD) >90 (>60 ml/min/1.73 sqM); Potassium 3.7 mmol/L (3.5-5.1); Sodium 135 mmol/L (137-145)
[2021-02-18 08:48] VITALS: BP 120/71; PULSE 89; TEMP 98.5
--- NOTE | 2021-02-18 11:26 | P.HPIM ---
History of Present Illness H&P Date: 02/18/21 HISTORY OF PRESENT ILLNESS This is a 40-year-old female patient of Dr. eLma with past medical history of generalized anxiety disorder, tobacco use and dependence. Patient complains of right flank pain worsening over the past 4-5 days along with mild suprapubic discomfort, hematuria. She complains of decreased appetite. No nausea or vomiting. Reports dysuria. 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 She states she's been seen a chiropractor. She denies having any fevers at home. Patient presented to [facility] emergency center for evaluation. Temperature max 100.3, heart rate initially 124, pressure 167/82, pulse ox 97% on room air. WBC 13.1, hemoglobin 14.3, platelet count 448. Sodium 134, potassium 3.8, chloride 100, CO2 23, BUN 15 and creatinine 0.67. Blood sugar 129. AST 43. Other liver function tests normal. Urine hCG not detected. Lactic acid 4.3 with repeat of 1.3. Urinalysis was light red, cloudy, 3+ protein, trace ketones, large blood, large leukoesterase. RBCs greater than 182, WBC 46. Squamous cell 6. CAT scan of the abdomen and pelvis without contrast revealed no renal stones or hydronephrosis is seen bilaterally no acute findings. Renal ultrasound reveals echogenic focus in the right kidney that could be nonobstructing calculus. No evidence of obstruction. Normal urinary bladder. Patient received 3-1/2 L of IV fluid, vancomycin, ceftriaxone, Toradol for pain and Xanax, admitted to the pediatric unit. Patient given t reatment options and she would like to go home. Patient will be prescribed Ceftin for 10 day course and will be discharged home today in stable condition after she received second dose of ceftriaxone. REVIEW OF SYSTEMS Constitutional: No fever, no chills, no night sweats. No weight change. No weakness, fatigue or lethargy. No daytime sleepiness. EENT: No headache. No blurred vision or double vision, no loss of vision. No loss of Hearing, no ringing in the ears, no dizziness. No nasal drainage or congestion. No epistaxis. No sore throat. Lungs: No shortness of breath, cough, no sputum production. No wheezing. Cardiovascular: No chest pain, no lower extremity edema. No palpitations. No paroxysmal nocturnal dyspnea. No orthopnea. No lightheadedness or dizziness. No syncopal episodes. Abdominal: Reports suprapubic abdominal pain. No nausea, vomiting. No diarrhea. No constipation. No bloody or tarry stools.. No loss of appetite. Reports flank pain Genitourinary: Reports dysuria, increased frequency, urgency. No urinary retention. Reports hematuria. Musculoskeletal: No myalgias. No muscle weakness, no gait dysfunction, no frequent falls. No back pain. No neck pain. Integumentary: No wounds, no lesions. No rash or pruritus. No unusual bruising. No change in hair or nails. Neurologic: No aphasia. No facial droop. No change in mentation. No head injury. No headache. No paralysis. No paresthesia. Psychiatric: No depression. No anxiety. No mood swings. Endocrine: No abnormal blood sugars. SOCIAL HISTORY Patient is a smoker of 3 cigerettes per week. She drinks one glass of wine per week. She does not have CPAP, oxygen or nebulizer at home. FAMILY HISTORY Father is alive at age 68 with history of smoking and no other medical history. Mother she does not know but has been told that there is history of cervical cancer in her family. Patient does not have any siblings. Patient has one 21-year-old son with no major medical problems. PHYSICAL EXAMINATION Gen: This is a 40-year-old female. Patient is resting in bed and appears to be comfortable and in no acute distress. HEENT: Head is atraumatic, normocephalic. Pupils equal, round. Sclerae is anicteric. NECK: Supple. No JVD. No lymphadenopathy. No thyromegaly. LUNGS: Clear to auscultation. No wheezes or rhonchi. No intercostal retractions. HEART: Regular rate and rhythm. No murmur. ABDOMEN: Soft. Bowel sounds are present. No masses. No tenderness. No CVA tenderness. EXTREMITIES: No pedal edema. No calf tenderness. NEUROLOGICAL: Patient is awake, alert and oriented x3. Cranial nerves 2 through 12 are grossly intact. ASSESSMENT AND PLAN 1. Sepsis secondary to hemorrhagic cystitis, possible pyelonephritis. 2. Lactic acidosis, resolved. 3. Generalized anxiety disorder. Continue Xanax 0.5 mg daily as needed. 4. Tobacco use and dependence. 5. COVID-19 testing negative. Patient has been hospitalized during a pandemic. Patient placed as an observation status. DISCHARGE PLAN Home. Impression and plan of care have been directed as dictated by the signing physician. Mitzi Dnoaldson nurse practitioner acting as scribe for signing physician. Past Medical History Past Medical History: No Reported History History of Any Multi-Drug Resistant Organisms: None Reported Past Surgical History: Tonsillectomy Additional Past Surgical History / Comment(s): Toe surgery as child Past Psychological History: Anxiety Additional Psychological History / Comment(s): Insomnia Smoking Status: Current some day smoker Past Alcohol Use History: Occasional Past Drug Use History: None Reported - Past Family History Father Family Medical History: No Reported History Mother Additional Family Medical History / Comment(s): Biological mother had Cervical cancer Medications and Allergies Home Medications Medication Instructions Recorded Confirmed Type ALPRAZolam [Xanax] 0.5 mg PO DAILY PRN 02/17/21 02/17/21 History Cyclobenzaprine [Flexeril] 10 mg PO HS 02/17/21 02/17/21 History Eszopiclone [Lunesta] 2 mg PO HS 02/17/21 02/17/21 History Etonogestrel/Ethinyl Estradiol 1 ring VAGINAL DIRECTED 02/17/21 02/17/21 History [Nuvaring Vaginal Ring] Ketorolac [Toradol] 10 mg PO Q6H PRN 02/17/21 02/17/21 History Cefuroxime Axetil [Ceftin] 500 mg PO BID 10 Days #10 tab 02/18/21 Rx Allergies Allergy/AdvReac Type Severity Reaction Status Date / Time azithromycin AdvReac Nausea & Verified 02/17/21 16:02 [From Zithromax Z-[place]on] Vomiting Physical Exam Vitals: Vital Signs Temp Pulse Pulse Resp BP BP Pulse Ox 02/18/21 08:10 98.5 F 89 16 120/71 98 02/18/21 02:00 98 F 78 16 134/82 96 02/17/21 18:18 99.3 F 82 16 132/84 02/17/21 17:51 98.4 F 95 18 140/82 100 02/17/21 15:00 98.9 F 02/17/21 14:16 100.4 F H 95 18 134/78 100 02/17/21 12:53 97.9 F 124 H 18 167/82 97 Intake and Output 02/17/21 02/18/21 02/18/21 22:59 06:59 14:59 Output Total 125 Balance -125 Output: Urine 125 Other: Voiding Method Toilet Toilet # Voids 4 Weight 70.76 kg Results CBC & Chem 7: 02/18/21 05:33 02/18/21 05:33 Labs: Abnormal Lab Results - Last 24 Hours (Table) 02/17/21 02/17/21 02/17/21 Range/Units 13:37 13:37 13:37 WBC 13.1 H (3.8-10.6) k/uL RBC (3.80-5.40) m/uL Neutrophils # 9.8 H (1.3-7.7) k/uL Sodium 134 L (137-145) mmol/L Glucose 129 H (74-99) mg/dL Plasma Lactic Acid Eliud (0.7-2.0) mmol/L Calcium (8.4-10.2) mg/dL AST 43 H (14-36) U/L Urine Appearance Cloudy H (Clear) Urine Protein 3+ H (Negative) Urine Ketones Trace H (Negative) Urine Blood Large H (Negative) Ur Leukocyte Esterase Large H (Negative) Urine RBC >182 H (0-5) /hpf Urine WBC 46 H (0-5) /hpf Ur Squamous Epith Cells 6 H (0-4) /hpf Amorphous Sediment Rare H (None) /hpf Urine Bacteria Rare H (None) /hpf Urine Mucus Many H (None) /hpf Urine Yeast (Budding) Rare H (None) /hpf 02/17/21 02/18/21 02/18/21 Range/Units 13:37 05:33 05:33 WBC (3.8-10.6) k/uL RBC 3.67 L (3.80-5.40) m/uL Neutrophils # (1.3-7.7) k/uL Sodium 135 L (137-145) mmol/L Glucose (74-99) mg/dL Plasma Lactic Acid Eliud 4.3 H* (0.7-2.0) mmol/L Calcium 8.0 L (8.4-10.2) mg/dL AST (14-36) U/L Urine Appearance (Clear) Urine Protein (Negative) Urine Ketones (Negative) Urine Blood (Negative) Ur Leukocyte Esterase (Negative) Urine RBC (0-5) /hpf Urine WBC (0-5) /hpf Ur Squamous Epith Cells (0-4) /hpf Amorphous Sediment (None) /hpf Urine Bacteria (None) /hpf Urine Mucus (None) /hpf Urine Yeast (Budding) (None) /hpf Microbiology - Last 24 Hours (Table) 02/17/21 13:37 Urine Culture - Preliminary Urine,Voided Thrombosis Risk Factor Assmnt - Choose All That Apply Each Factor Represents 1 point: Age 41-60 years Thrombosis Risk Factor Assessment Total Risk Factor Score: 1 Thrombosis Risk Factor Assessment Level: Low Risk
[2021-02-19] MEDS ORDERED: VANCOMYCIN TROUGH DUE 1 EACH MISC MISCELLANE ONE (05:00)
== END 2021-02-18 12:10 | disposition home or self-care (01) ==
LOC: EC 12:41 → 6PED 18:18
PROVIDERS: ADMIT Family Medicine; ATTEND Family Medicine
DX: A41.9 Sepsis, unspecified organism (principal); N30.91 Cystitis, unspecified with hematuria; E87.2 Acidosis; F41.1 Generalized anxiety disorder; N12 Tubulo-interstitial nephritis, not specified as acute or chronic; M54.9 Dorsalgia, unspecified; G47.00 Insomnia, unspecified; Z87.440 Personal history of urinary (tract) infections; R03.0 Elevated blood-pressure reading, without diagnosis of hypertension; F17.210 Nicotine dependence, cigarettes, uncomplicated; Z20.822 Contact with and (suspected) exposure to COVID-19; Z79.890 Hormone replacement therapy; Z79.899 Other long term (current) drug therapy; Z88.1 Allergy status to other antibiotic agents; Z84.89 Family history of other specified conditions; Z80.49 Family history of malignant neoplasm of other genital organs
CPT/HCPCS: 96361 ×2; 96376 ×3; 96365; 96367; 96375; 99285; 36415; 80053; 80048; 83605; 85025 ×2; 81001; 81025; 87040; 87086; 87635; 76770; 74176; G0378 ×2; J3370 ×2; J0696 ×2; J1885 ×2

== ENCOUNTER → 2021-06-25 | Outpatient (CLI) | payer BC ==
[2021-06-25 17:16] LABS: Basophils # (A) 0.08 X 10*3/uL (0.00-0.10); Eosinophils # (A) 0.25 X 10*3/uL (0.04-0.35); Eosinophils % (A) 3.1 %; HGB 13.4 g/dL (12.0-15.0); Lymphocytes # (A) 3.25 X 10*3/uL (0.90-5.00); Lymphocytes % (A) 40.6 %; MCH 32.4 pg (27.0-32.0); MCHC 33.5 g/dL (32.0-37.0); MCV 96.9 fL (80.0-97.0); Mean Platelet Volume 8.9 fL (9.5-12.2); Monocytes # (A) 0.73 X 10*3/uL (0.20-1.00); Monocytes % (A) 9.1 %; Neutrophils # (A) 3.66 X 10*3/uL (1.80-7.70); Neutrophils % (A) 45.8 %; Platelet Count 449 X 10*3/uL (140-440); RBC 4.13 X 10*6/uL (4.10-5.20); RDW 13.2 % (11.5-14.5)
[2021-06-25 18:07] LABS: Potassium 3.9 mmol/L (3.5-5.5)
[2021-06-25 18:08] LABS: African American GFR (CKD) 106.1 (60.0-200.0); Albumin 4.5 g/dL (3.80-4.90); Albumin/Globulin Ratio 1.96 (1.60-3.17); Anion Gap 6.8 mmol/L (4.00-12.00); BUN/Creat Ratio 17.5 Ratio (12.00-20.00); Calcium 9.7 mg/dL (8.7-10.3); Carbon Dioxide 26.2 mmol/L (21.6-31.8); Globulin 2.3 g/dL (1.6-3.3); Non-African American GFR(CKD) 91.6 (60.0-200.0); Total Bilirubin 0.4 mg/dL (0.3-1.2); Total Protein 6.8 g/dL (6.2-8.2)
== END | disposition home or self-care (01) ==
LOC: LABWHC1 07:59
PROVIDERS: ATTEND Nurse Practitioner Gerontology
DX: N10 Acute pyelonephritis (principal)
CPT/HCPCS: 36415; 80053; 85025

== ENCOUNTER → 2022-02-23 | Outpatient (CLI) | payer BC ==
--- NOTE | 2022-02-24 09:29 | MM ---
Reason for exam: clinical finding. Last mammogram was performed 1 year and 1 month ago. History: Taking hormonal contraceptives for 8 years. Indicated problem(s): lump or thickening in the left breast. Physical Findings: A clinical breast exam by your physician is recommended on an annual basis and results should be correlated with mammographic findings. MG 3D Diag Mammo W/Cad BASHIR Bilateral CC, MLO, and LM view(s) were taken. Prior study comparison: January 25, 2021, bilateral MG 3d screening mammo w/cad. June 27, 2018, bilateral MG 3d screening mammo w/cad. The breast tissue is heterogeneously dense. This may lower the sensitivity of mammography. There is chronic nodularity in the right breast. 5mm circumscribed nodule right 12 o'clock appears new. Pain marker lateral left breast. Results were given to the patient verbally at the time of the exam. ASSESSMENT: Incomplete: need additional imaging evaluation, BI-RAD 0 RECOMMENDATION: Ultrasound of both breasts. (right 11-1 o'clock, left lateral half)
--- NOTE | 2022-02-24 09:32 | USB ---
Reason for exam: additional evaluation requested from abnormal screening. History: Taking hormonal contraceptives for 8 years. Physical Findings: A clinical breast exam by your physician is recommended on an annual basis and results should be correlated with mammographic findings. US Breast Limited BILAT Technologist: Marichuy Nix RT (R)(M) Right limited breast ultrasound including focal area of concern, retroareolar and axilla demonstrates a 4 x 4 x 3mm oval, cyst at 12 o'clock, 4cm from nipple, likely mammographic correlate, 6 month follow up recommended. Left limited breast ultrasound including focal area of concern, retroareolar and axilla demonstrates no abnormality at area of concern left upper outer quadrant. Right scanned 11-2 o'clock. Left scanned 12-3 o'clock. Results were given to the patient verbally at the time of the exam. ASSESSMENT: Probably benign, BI-RAD 3 RECOMMENDATION: Follow-up diagnostic mammogram of the right breast in 6 months. Manage on a clinical basis with regard to lateral left breast.
== END | disposition home or self-care (01) ==
LOC: RADMAMWWP 10:01
PROVIDERS: ATTEND Family Medicine
DX: N60.01 Solitary cyst of right breast (principal)
CPT/HCPCS: 77062; 77066

== ENCOUNTER → 2023-11-26 | Outpatient (CLI) | payer MEDICAID ==
--- NOTE | 2023-11-27 10:58 | CA ---
Transthoracic Echo Report Name: Fawad Marquez Age: 43 Gender: F : 1980 Exam Date: 11/26/2023 14:46 Exam Location: [facility] Ht (in): 66 Wt (lb): 148 Ordering Physician: Juan M Larsen MD Attending/Referring Phys: [id number], Chava Telephone Information Supervisor Doreen Mei RDCS Procedure CPT: Indications: R94.31 ABNORMAL ELECTROCARDIOGRAM Cardiac Hx: Technical Quality: Fair Contrast 1: Total Dose (mL): Contrast 2: Total Dose (mL): MEASUREMENTS (Male / Female) Normal Values 2D ECHO LV Diastolic Diameter PLAX 3.8 cm 4.2 - 5.9 / 3.9 - 5.3 cm LV Systolic Diameter PLAX 2.7 cm IVS Diastolic Thickness 0.9 cm 0.6 - 1.0 / 0.6 - 0.9 cm LVPW Diastolic Thickness 1.0 cm 0.6 - 1.0 / 0.6 - 0.9 cm LV Relative Wall Thickness 0.5 RV Internal Dim ED PLAX 3.0 cm LA Volume 31.6 cm??? 18 - 58 / 22 - 52 cm??? LA Volume Index 17.8 cm???/m??? 16 - 28 cm???/m??? M-MODE Aortic Root Diameter MM 2.3 cm LA Systolic Diameter MM 3.4 cm LA Ao Ratio MM 1.5 AV Cusp Separation MM 1.7 cm DOPPLER AV Peak Velocity 120.3 cm/s AV Peak Gradient 5.8 mmHg AV Mean Velocity 87.8 cm/s AV Mean Gradient 3.3 mmHg AV Velocity Time Integral 23.7 cm LVOT Peak Velocity 107.9 cm/s LVOT Peak Gradient 4.7 mmHg LVOT Velocity Time Integral 17.3 cm MV Area PHT 3.8 cm??? Mitral E Point Velocity 64.5 cm/s Mitral A Point Velocity 54.2 cm/s Mitral E to A Ratio 1.2 MV Deceleration Time 199.3 ms MV E' Velocity 8.7 cm/s Mitral E to MV E' Ratio 7.4 TR Peak Velocity 164.9 cm/s TR Peak Gradient 10.9 mmHg Right Ventricular Systolic Press 15.9 mmHg FINDINGS Left Ventricle Normal Left ventricular size, wall thickness, systolic function with no obvious regional wall motion abnormalities. Normal Left ventricular diastolic filling pattern. Left ventricular ejection fraction is estimated at 55-60 %. Right Ventricle Normal right ventricular size and function. Right ventricular systolic pressure within normal limits. Right Atrium Normal right atrial size. Left Atrium Normal left atrial size. Mitral Valve Structurally normal mitral valve. No mitral stenosis, regurgitation or prolapse. Aortic Valve Trileaflet aortic valve. No aortic valve stenosis or regurgitation. Tricuspid Valve Structurally normal tricuspid valve. Trace to mild tricuspid regurgitation. Pulmonic Valve Trace pulmonic regurgitation. Pericardium No pericardial effusion. Aorta Normal size aortic root and proximal ascending aorta. CONCLUSIONS Normal left ventricular ejection fraction 55-60% No mitral regurgitation Trace mild tricuspid regurgitation No pericardial effusion Previewed by: Dr. Medhat Ortiz DO (Electronically Signed) Final Date: 27 November 2023 10:57
== END | disposition home or self-care (01) ==
LOC: RADECHMAIN 14:28
PROVIDERS: ATTEND Family Medicine
DX: R94.31 Abnormal electrocardiogram [ECG] [EKG] (principal); I36.1 Nonrheumatic tricuspid (valve) insufficiency
CPT/HCPCS: 93306

== ENCOUNTER → 2024-06-23 | Outpatient (CLI) | payer MEDICAID ==
--- NOTE | 2024-06-24 17:16 | MM ---
Reason for Exam: Screening (asymptomatic). Last mammogram was performed 2 year(s) and 4 month(s) ago. Patient History: Menarche at age 9. First Full-Term at age 19. Patient has history of breast feeding. Patient used Hormonal Contraceptives for 8 years. Risk Values: Vianca 5 year model risk: 0.8%. NCI Lifetime model risk: 9.5%. Prior Study Comparison: 06/27/2018 Bilateral Screening Mammogram, [facility]. 01/25/2021 Bilateral Screening Mammogram, [facility]. 02/23/2022 Bilateral Diagnostic Mammogram, [facility]. Tissue Density: There are scattered areas of fibroglandular density. Findings: Analyzed By CAD. There is no suspicious group of microcalcifications or new suspicious mass in either breast. Overall Assessment: Negative, BI-RAD 1 Management: Screening Mammogram of both breasts in 1 year. . Patient should continue monthly self-breast exams. A clinical breast exam by your physician is recommended on an annual basis. This exam should not preclude additional follow-up of suspicious palpable abnormalities. Note on Vianca scores and lifetime risk: 1. A Vianca score greater than 3% is considered moderate risk. If this is the case, consider specialist referral to assess eligibility for a risk reducing agent. 2. If overall lifetime risk for the development of breast cancer is 20% or higher, the patient may qualify for future screening with alternating mammogram and breast MRI. Electronically signed and approved by: Eddie Jacinto M.D. Radiologist
== END | disposition home or self-care (01) ==
LOC: RADMAMWWP 14:05
PROVIDERS: ATTEND Obstetrics & Gynecology
DX: Z12.31 Encounter for screening mammogram for malignant neoplasm of breast
CPT/HCPCS: 77063; 77067